=== PATIENT | female | born 1965 | race Caucasian/White ===

== ENCOUNTER 2017-03-12 09:03 | Outpatient (CLI) | payer MEDICAID ==
[~2017-03-12 09:03] MED LIST: MECLIZINE HYDRO25 MG PO; ZOFRAN ODT4 MG PO
[2017-03-12 09:15] VITALS: BP 118/57
[2017-03-12] MEDS ORDERED: CALCIUM WITH V1 EACH PO (09:33)
[2017-03-12] MEDS ORDERED: LOSARTAN POTASS50 MG PO (09:33)
[2017-03-12] MEDS ORDERED: FISH OIL1000 MG PO (09:35)
[2017-03-12] MEDS ORDERED: TURMERIC500 M1 PO (09:35)
[2017-03-12] MEDS ORDERED: GINKGO60 MG PO (09:36)
== END 2017-03-12 09:45 | disposition home or self-care (01) ==
LOC: COP 09:03
DX: R10.11 Right upper quadrant pain (principal)

== ENCOUNTER → 2017-10-15 | Outpatient (CLI) | payer MEDICAID ==
[~2017-10-15] MED LIST changes: +CALCIUM WITH V1 EACH PO; +FISH OIL1000 MG PO; +GINKGO60 MG PO; +LOSARTAN POTASS50 MG PO; +OMEPRAZOLE20 MG PO; +PROBIOTIC250 MG PO; +TURMERIC500 M1 PO
--- NOTE | 2017-10-15 17:37 | RADIOLOGY REPORT PS360 ---
CT CHEST W/O CONTRAST HISTORY: LUNG NODULES ORDERING PHYSICIAN: Da Moncada MD PATIENT AGE: 52 years TECHNIQUE: Axial images obtained without contrast COMPARISON: 11/03/2016 FINDINGS: There are scattered small mediastinal lymph nodes some of which are calcified. Normal heart size without pericardial thickening. There are scant coronary artery calcifications. There is mild hyperinflation with attenuation of peripheral pulmonary vessels with mild bronchial thickening consistent with obstructive chronic bronchitis. There is a 2 mm nodule in the left apex unchanged. Previously noted 3 mm nodule in left lung base is not identified on today's exam there is some minimal fibrotic change in the left lung base. Upper abdominal images show no acute finding. There is probable small developing left renal cyst at 1 cm and there has been an interval cholecystectomy. No acute bony anomalies. IMPRESSION: 1. Overall stable CT appearance of the chest with no acute findings. 2. Mild obstructive chronic bronchitis
== END ==
LOC: RAD 13:15
DX: R91.8 Other nonspecific abnormal finding of lung field (principal)